=== PATIENT | male | born 1945 | race Caucasian/White ===

== ENCOUNTER 2024-11-12 13:00 | Emergency (ER) | payer MEDICARE ==
[~2024-11-12] VITALS: Ht 167.6 cm; Wt 63.5 kg
[2024-11-12] MEDS ORDERED: Lidocaine Hydrochloride 2 GM/50 ML BOT T ONE (14:10)
[2024-11-12] MEDS ORDERED: Tdap Vaccine 0.5 ML SYR (Adult Vaccine) IM ONE (14:50)
== END 2024-11-12 15:40 | disposition home or self-care (01) ==
LOC: ED 13:00
DX: S61.213A Laceration without foreign body of left middle finger without damage to nail, initial encounter (principal); Z88.8 Allergy status to other drugs, medicaments and biological substances; W26.8XXA Contact with other sharp object(s), not elsewhere classified, initial encounter; Y93.89 Activity, other specified; Y92.89 Other specified places as the place of occurrence of the external cause; Y99.8 Other external cause status